=== PATIENT | female | born 1985 | race Asian ===

== ENCOUNTER 2019-04-06 16:48 | Inpatient (IN) | payer BC ==
[~2019-04-06 16:48] MED LIST: Bupivacaine 0.25% 10 ML VIAL ONE
[2019-04-06] MEDS ORDERED: hydrALAZINE 20 MG/ML VIAL SLOW IVP PRN (17:16)
[2019-04-06] MEDS ORDERED: HYDROcodone/Acetaminophen 5/325 mg Tablet PO PRN ×2 (17:16)
[2019-04-06] MEDS ORDERED: Butorphanol Tartrate 1 MG/ML VIAL SLOW IVP PRN (17:16)
[2019-04-06] MEDS ORDERED: Ibuprofen 800 MG TAB PO PRN (17:16)
[2019-04-06] MEDS ORDERED: Promethazine HCl 25 MG/ML VIAL IM PRN ×2 (17:16→23:40)
[2019-04-06] MEDS ORDERED: Lidocaine 1% (PF) 30 ML VIAL SC PRN (17:16)
[2019-04-06] MEDS ORDERED: Ondansetron PF 4 MG/2 ML Vial IVP PRN ×2 (17:16→23:40)
[2019-04-06] MEDS ORDERED: NS / Oxytocin 40 units/1000ml 1,000 ML IV PRN (17:16)
--- NOTE | 2019-04-06 17:19 | PDOC.EVN ---
Event Note - Event Note Event Note: Asked to place courtesy orders for direct admit. Orders placed for [facility]. Orders only; Pt not sen as provider will assume care
[2019-04-06 17:28] VITALS: BMI 24.8
[2019-04-06] MEDS ORDERED: Penicillin G 2.5 MILL.units 2.5 MILL.UNITS in Premix Bag 1 BAG IVPB SCH (17:30)
[2019-04-06] MEDS ORDERED: Penicillin G Potassium 5 MILL.UNITS in Sodium Chloride 0.9% 100 ML IVPB SCH (17:30)
[2019-04-06] MEDS: Lactated Ringer's 1,000 ML IV SCH ×2 (17:51→23:40)
[2019-04-06 18:01] LABS: Hemoglobin 13.7 g/dL (12.0-16.0); Mean Corpuscular HGB CONC 33.5 g/dL (32.0-36.0); Mean Corpuscular Volume 89.5 fL (78.0-98.0); Mean Platelet Volume 9.2 fL (7.4-10.4); Platelet Count 148 thou/uL (130-400); RBC Distribution Width 12.6 % (11.5-14.5); Red Blood Cell (RBC) Count 4.57 mill/uL (4.20-5.40); White Blood Cell (WBC) Count 9.4 thou/uL (4.8-10.8)
[2019-04-06 18:45] LABS: HBSAg Index 0.33 S/CO (0-0.99); HIV (1/2) Antibody/Antigen Non-Reactive (NonReactive); Hep B Surf Ag Non-Reactive S/CO (NonReactive); Syphilis Antibody Nonreactive (Nonreactive); Syphilis Antibody Index 0.06 S/CO (<1.00 Non-Reactive)
[2019-04-06] MEDS ORDERED: Fentanyl 4 mcg/Bup 0.1% Cadd 100 ML ONE (22:54)
[2019-04-06] MEDS ORDERED: Naloxone HCl 0.4 mg/ml Vial IVP PRN ×2 (23:40)
[2019-04-06] MEDS ORDERED: Lactated Ringer's 500 ML IV PRN (23:40)
[2019-04-06] MEDS ORDERED: ePHEDrine/0.9% NaCl/PF SYRINGE 50 mg/10 ml SLOW IVP PRN (23:40)
[2019-04-06] MEDS ORDERED: diphenhydrAMINE 50 MG/ML VIAL IVP PRN (23:40)
[2019-04-06] MEDS ORDERED: Acetaminophen 325 MG TAB PO PRN (23:40)
[2019-04-06] MEDS ORDERED: Communication Order-Pharmacy FS SCH (23:45)
[2019-04-06] MEDS ORDERED: Fentanyl 4 mcg/Bupivacaine 0.1% Cassette 100 ML EPIDURAL SCH (23:45)
[2019-04-07] MEDS ORDERED: Misoprostol 200 MCG TAB ONE (03:38)
[2019-04-07] MEDS: Lactated Ringer's 1,000 ML IV SCH (06:41)
--- NOTE | 2019-04-07 07:00 | PDOC.LDHP ---
Labor and Delivery H&P Chief complaint: loss of fluid HPI: patient reports loss of fluid at 1645. +FM. Current gestational age (weeks): 40 (and 5 days) Due date: 04/02/19 Dating criteria: last menstrual period Grav: 3 Para: 1 OB History Details: with 4th degree Current complications: other (AMA) Current medications: pre- vitamins Allergies/Adverse Reactions: Allergies Allergy/AdvReac Type Severity Reaction Status Date / Time Penicillins Allergy Verified 04/06/19 17:26 Social history: none - Physical Exam Vital signs reviewed and normal: yes General: breathing through contractions Lungs: nonlabored breathing Abdomen: gravid Extremeties: trace edema FHT: category 1 - Vaginal Exam cm dilated: 4 Effacement: 90% Station: -2 - OB Labs Blood type: B RH: positive Antibody Screen: negative HIV: negative RPR: negative HEPSAg: negative 1 hour GCT: negative GBS: negative Urine drug screen: negative Rubella: immune Additional Labs: NIPS low risk - Assessment L&D Assessment: term rupture in membranes - Plan Plan: admit to L&D -: A: with SROM in labor P: admit to labor and dleivery anticipate
--- NOTE | 2019-04-07 07:08 | PDOC.OPDEL ---
OB Operative/Delivery Note Delivery Dr/Surgeon: Shauna Medel Pre-Delivery Diagnosis: active labor, ruptured membrane Procedure/Post Delivery Dx: spontaneous vaginal delivery Weeks gestation: 40 Anesthesia: epidural - Findings A Sex: female - 1 min: 7 - 5 min: 9 - Additional Findings/Plan Placenta delivered: spontaneous Repaired Obstetrical Laceration: 2nd degree Estimated blood loss: 164mL QBL Post delivery plan: routine recovery
[2019-04-07] MEDS ORDERED: Bisacodyl 10 MG SUPP PR PRN (08:55)
[2019-04-07] MEDS ORDERED: hydrALAZINE 20 MG/ML VIAL SLOW IVP PRN (08:55)
[2019-04-07] MEDS ORDERED: Benzocaine-Menthol 82.5 ML CAN TOP PRN (08:55)
[2019-04-07] MEDS ORDERED: Milk Of Magnesia 30 ML UDCUP PO PRN (08:55)
[2019-04-07] MEDS ORDERED: Adacel (T-DAP) 0.5 ML SYRINGE IM ONE (08:55)
[2019-04-07] MEDS ORDERED: Ondansetron PF 4 MG/2 ML Vial IVP PRN (08:55)
[2019-04-07] MEDS ORDERED: Methylergonovine 0.2 MG/ML VIAL IM PRN (08:55)
[2019-04-07] MEDS ORDERED: NS / Oxytocin 40 units/1000ml 1,000 ML IV SCH (08:55)
[2019-04-07] MEDS ORDERED: Misoprostol 200 MCG TAB VAG PRN (08:55)
[2019-04-07] MEDS ORDERED: HYDROcodone/Acetaminophen 5/325 mg Tablet PO PRN ×2 (08:55)
[2019-04-07] MEDS ORDERED: NS / Oxytocin 40 units/1000ml 1,000 ML ONE (09:11)
[2019-04-07] MEDS: Prenatal Vitamin 1 TAB PO SCH (10:55)
[2019-04-07] MEDS: Docusate Calcium (SURFAK) 240 MG CAP PO SCH ×2 (10:55→21:43)
[2019-04-07] MEDS: Ferrous Sulfate 325 MG TAB PO SCH (13:53)
[2019-04-07] MEDS: Ibuprofen 800 MG TAB PO SCH ×2 (13:53→21:42)
--- NOTE | 2019-04-08 04:22 | PDOC.PP ---
Post Progress Note Post Day #: 1 Subjective: Patient doing well. No significant overnight events. Tolerating PO. Lochia minimal. PO intake tolerated: yes Flatus: yes Ambulation: yes Vital Signs (12 hours) Temp Pulse Resp BP Pulse Ox 04/08/19 00:00 97.9 F 70 113/71 04/07/19 19:31 98.0 F 83 12 112/74 96 04/07/19 17:52 98.3 F 83 12 126/80 95 Weight Weight 69.853 kg - Physical Examination General: NAD Cardiovascular: RRR Respiratory: non-labored breathing Abdominal: + bowel sounds, lochia (minimal), no distention, appropriately TTP Fundus firm & at: umbilicus Skin: no rash Neurological: no gross focal deficits Psychiatric: A&Ox3, normal affect Result Diagrams: 04/06/19 17:46 Additional Labs: Post Labs Blood Type B POSITIVE 04/06/19 19:13 Hep Bs Antigen Non-Reactive S/CO (NonReactive) 04/06/19 17:46 (1) Term delivered Code(s): O80 - ENCOUNTER FOR FULL-TERM UNCOMPLICATED DELIVERY Status: Acute - Assessment/Plan Routine PP care - PP day #1 s/p uncomplicated - Rh positive, rubella immune - GBS negative - Lochia minimal - 2nd degree perineal laceration s/p repair, hemostatic Dispo: Stable. Possible d/c home later today.
[2019-04-08] MEDS: Ibuprofen 800 MG TAB PO SCH ×2 (05:42→14:04)
[2019-04-08 08:30] VITALS: BP 113/70; TEMP 97.8
[2019-04-08] MEDS: Ferrous Sulfate 325 MG TAB PO SCH (08:47)
[2019-04-08] MEDS: Docusate Calcium (SURFAK) 240 MG CAP PO SCH (08:47)
[2019-04-08] MEDS: Prenatal Vitamin 1 TAB PO SCH (08:47)
== END 2019-04-08 14:15 | disposition home or self-care (01) | DRG 807 ==
LOC: L&D/OP 16:48 → L&D 17:45 → 3SW 04-07 09:19
PROVIDERS: ADMIT Obstetrics & Gynecology; ATTEND Obstetrics & Gynecology
PROC: 10E0XZZ Delivery of Products of Conception, External Approach (ICD-10-PCS; principal; 2019-04-06)
PROC: 0KQM0ZZ Repair Perineum Muscle, Open Approach (ICD-10-PCS; 2019-04-06)
DX: O70.1 Second degree perineal laceration during delivery (principal); Z37.0 Single live birth; Z3A.40 40 weeks gestation of pregnancy; Z88.0 Allergy status to penicillin
CPT/HCPCS: 36415; 51702; 85027; 86780; 86850; 86900; 86901; 87340; 87389; 99285; S0020